=== PATIENT | male | born 1940 | race Caucasian/White ===

== ENCOUNTER 2016-09-24 07:39 | Day surgery (SDC) | payer MEDICARE, BC ==
[2016-09-24] MEDS ORDERED: Lactated Ringers 1,000 ML IV SCH (07:45)
[2016-09-24] MEDS ORDERED: Midazolam 1 MG/ML 2 ML SDV IV ONE (09:30)
[2016-09-24] MEDS ORDERED: Lidocaine 2% 100 MG/5 ML Syringe IVPUSH ONE (09:30)
[2016-09-24] MEDS ORDERED: Propofol 200 MG/20 ML SDV IV ONE (09:30)
--- NOTE | 2016-09-24 10:06 | PCM.OPNOTE ---
- General Post-Op/Procedure Note Date of Surgery/Procedure: 09/24/16 Operative Procedure(s): egd with bx. c scope with bx Findings: gastroduodenitis rectal polyp sigmoid diverticular disease Pre Op Diagnosis: anemia Post-Op Diagnosis: gastroduodenitis. rectal polyp. sigmoid diverticular disease Anesthesia Technique: [facility] [place] Primary Surgeon: Edu Arthur Anesthesia Provider: Jammie Knight Pathology: stomach, duodenum, rectal polyp Complications: None Condition: Good Free Text/Narrative:: see dictation
[2016-09-24 12:16] VITALS: BP 147/82
--- NOTE | 2016-09-24 16:22 | OR ---
DATE OF OPERATION: 09/24/2016 SURGEON: Edu Arthur MD PROCEDURE PERFORMED: Esophagogastroduodenoscopy with cold forceps biopsy and colonoscopy with cold forceps biopsy. PREOPERATIVE DIAGNOSIS: Anemia. POSTOPERATIVE DIAGNOSIS: Gastroduodenitis and rectal polyp as well as sigmoid diverticulosis. INDICATIONS FOR PROCEDURE: This is a 76-year-old white male, who is referred with a history of anemia. He was offered and accepted upper and lower endoscopy as part of his workup for cause. DESCRIPTION OF OPERATION: After an excellent IV sedation was administered, the bite block was inserted. The flexible endoscope was passed without difficulty down to the patient's esophagus into the stomach. The stomach was insufflated. The scope was passed through the pylorus to the second portion of the duodenum and slowly withdrawn. The following findings were noted. Duodenum demonstrates duodenitis in the first portion of the duodenum. Biopsies were taken. Stomach demonstrated diffuse gastritis. Biopsies were taken. GE junction measured at 40 cm. Esophagus was unremarkable. Stomach was deflated and the scope was removed. Our attention was then turned to the colon. Digital rectal exam was performed. Flexible colonoscope was inserted and advanced to the cecum without difficulty. The following findings were noted. Ascending colon, unremarkable. Transverse colon, unremarkable. Descending colon, unremarkable. Sigmoid, mild diverticulosis. Rectum, a small polypoid lesion, biopsied. Colon was deflated and the scope was removed. The patient tolerated the procedure well, and was taken to recovery in good condition. /[id number] /[id number]
== END 2016-09-24 11:15 | disposition home or self-care (01) ==
LOC: FB.SDS 07:39
PROVIDERS: ATTEND Surgery
DX: K29.80 Duodenitis without bleeding (principal); D12.6 Benign neoplasm of colon, unspecified; K29.50 Unspecified chronic gastritis without bleeding; I10 Essential (primary) hypertension; Z88.8 Allergy status to other drugs, medicaments and biological substances; Z79.82 Long term (current) use of aspirin; Z79.899 Other long term (current) drug therapy; R03.0 Elevated blood-pressure reading, without diagnosis of hypertension; H52.00 Hypermetropia, unspecified eye; Z95.2 Presence of prosthetic heart valve
CPT/HCPCS: 00810; 43239; 45380; 88305; 88342; J2250; J2704; J7120

== ENCOUNTER 2024-03-06 09:28 | Day surgery (SDC) | payer MEDICARE ==
[2024-03-06] MEDS ORDERED: Sodium Chloride 0.9% 10 ML Syringe IV ONE (09:29)
[2024-03-06] MEDS ORDERED: fentaNYL 100 MCG/2 ML SDV IV ONE (09:29)
[2024-03-06] MEDS ORDERED: Midazolam 1 MG/ML 2 ML SDV IV ONE (09:29)
[2024-03-06] MEDS ORDERED: Lactated Ringers 1,000 ML IV PRN (09:30)
[2024-03-06] MEDS: Sodium Chloride 0.9% 10 ML Syringe FLUSH PRN (10:10)
[2024-03-06] MEDS: acetaZOLAMIDE 500 MG Cap.ER PO ONE (11:27)
[2024-03-06 13:48] VITALS: BP 128/95; PULSE 63
== END 2024-03-06 11:51 | disposition home or self-care (01) ==
LOC: FB.SDS 09:28
PROVIDERS: ATTEND Ophthalmology
DX: H26.9 Unspecified cataract (principal); I48.19 Other persistent atrial fibrillation; I10 Essential (primary) hypertension; Z79.899 Other long term (current) drug therapy
CPT/HCPCS: 66984; A9270; J2250; J3010; J3490; V2632; 00142; 99100

== ENCOUNTER 2024-03-20 06:45 | Day surgery (SDC) | payer MEDICARE ==
[~2024-03-20 06:45] MED LIST: Lactated Ringers 1,000 ML IV PRN; Sodium Chloride 0.9% 10 ML Syringe FLUSH PRN
[2024-03-20] MEDS ORDERED: Midazolam 1 MG/ML 2 ML SDV IV ONE (06:46)
[2024-03-20] MEDS ORDERED: Sodium Chloride 0.9% 10 ML Syringe IV ONE (06:46)
[2024-03-20] MEDS ORDERED: fentaNYL 100 MCG/2 ML SDV IV ONE (06:46)
[2024-03-20] MEDS: acetaZOLAMIDE 500 MG Cap.ER PO ONE (08:44)
[2024-03-20 13:32] VITALS: BP 126/83; PULSE 59
== END 2024-03-20 09:05 | disposition home or self-care (01) ==
LOC: FB.SDS 06:45
PROVIDERS: ATTEND Ophthalmology
DX: H26.9 Unspecified cataract (principal)
CPT/HCPCS: A9270-GY; J2250; J3010; J3490; V2632